=== PATIENT | female | born 1990 | race Caucasian/White ===

== ENCOUNTER → 2018-07-18 | Outpatient (CLI) | payer OTHER, MEDICAID ==
--- NOTE | 2018-07-18 12:26 | Diagnostic Imaging Report ---
INDICATION: survey. TECHNIQUE: Multiple real-time grayscale images were obtained over the gravid uterus. COMPARISON: None. FINDINGS: There is a single live fetus in a variable presentation. heart rate was recorded at 156 beats per minute. The placenta is posterior. The amniotic fluid volume appears normal. survey does show slight dilatation of the left renal pelvis. Kidneys are otherwise unremarkable. Bladder and stomach are unremarkable. The brain is unremarkable. There is a four-chamber heart. There is an echogenic focus noted in the heart. There is a three-vessel cord with normal insertion. The spine is unremarkable. Biometrical measurements are as follows: Biparietal 5.08 cm, age 21 weeks 3 days. Head circumference 18.56 cm, age 21 weeks 0 days. Abdominal circumference 17.58 cm, age 22 weeks 4 days. Femur length 3.38 cm, age 20 weeks 5 days. Sonographic estimate age: 21 weeks 3 days. Sonographic estimated date of delivery: 11/25/2018. Estimated Weight: 434 gm (+/- 63 gm). LMP percentile: 75%. heart rate: 156 beats per minute. number: 1 of 1. IMPRESSION: Single live IUP 21 weeks 3 days gestational age. Estimated date of confinement sonographically is 11/25/2018. survey is unremarkable apart from very slight dilatation of the left renal pelvis. There is an echogenic focus in the heart as well. Followup could be performed. Dictated by: Dictated on workstation # [id number]
== END ==
LOC: RAD 09:58
PROVIDERS: ATTEND Obstetrics & Gynecology
DX: Z36.89 Encounter for other specified antenatal screening (principal); Z3A.21 21 weeks gestation of pregnancy
CPT/HCPCS: 76805

== ENCOUNTER 2018-11-30 14:07 | Inpatient (IN) | payer BC, MEDICAID ==
[2018-11-30] VITALS (11 sets, daily range): BP systolic 115–131; BP diastolic 56–76
[~2018-11-30] VITALS: Ht 162.6 cm; Wt 117.0 kg
--- NOTE | 2018-11-30 14:11 | NUR ---
Arrived to unit from ED with c/o contractions. Wt obtained and ambulates to room 319. Pt is the induction of labor for tonight. plan of care reviewed with pt and family at bedside. per Ariella electrical & instrumentation supervisor
--- NOTE | 2018-11-30 15:15 | NUR ---
Dr Lucero called and notified of pt arrival, c/o, assessment, contractions, fhr pattern, sve. new orders for admission received.
[2018-11-30] MEDS ORDERED: D5 LR IV SOLUTION 1,000 ML IV SCH (15:36)
[2018-11-30 15:42] LABS: BASOPHILS % (AUTO) 0 % (0-10); EOSINOPHILS % (AUTO) 0 % (0-10); HEMATOCRIT 41 % (35-52); LYMPHOCYTES # (AUTO) 1.7 X 10^3 (1.0-4.0); LYMPHOCYTES % (AUTO) 16 % (12-44); MEAN CORPUSCULAR HEMOGLOBIN 29 PG (25-34); MEAN CORPUSCULAR HGB CONC 34 G/DL (32-36); MEAN CORPUSCULAR VOLUME 87 FL (80-99); MONOCYTES # (AUTO) 0.6 X 10^3 (0.0-1.0); MONOCYTES % (AUTO) 6 % (0-12); NEUTROPHILS # (AUTO) 8.1 X 10^3 (1.8-7.8); NEUTROPHILS % (AUTO) 78 % (42-75); PLATELET COUNT 167 10^3/uL (130-400); RED CELL DISTRIBUTION WIDTH 14.3 % (10.0-14.5); WHITE BLOOD COUNT 10.3 10^3/uL (4.3-11.0)
[2018-11-30] MEDS ORDERED: FLU QUADRIvalent (5+ YOA) 2018-2019 (AFLURIA) 0.5 ML IM ONE (16:15)
[2018-11-30] MEDS ORDERED: OXYTOCIN/NORMAL SALINE 500 ML IV ONE ×2 (17:40→18:39)
[2018-11-30] MEDS ORDERED: LIDOCAINE/EPI 2% 1:200,00 (XYLOCAINE) 10 ML VIAL ONE (17:41)
[2018-11-30] MEDS: OXYTOCIN/NORMAL SALINE 500 ML IV SCH ×2 (18:07→18:41)
--- NOTE | 2018-11-30 18:07 | NUR ---
Spontaneous vaginal delivery of placenta with cord. fundal massage by dr murphy. pitocin increased to 999ml/hr as ordered. 1814 pericare, pad under pt. pt assisted from foot rests to sf position. plan of care reviewed with pt and family. ffu/1 with lt rubra noted, no clots expressed 1830 ffu/1 with lt rubra noted, no clots expressed. 1845 ffu/1 with lt rubra noted, no clots expressed 1900 ffu/1 with lt-mod rubra noted, no clots expressed. pt sitting up eating dinner. denies needs.
--- NOTE | 2018-11-30 18:24 | History & Physical-OB ---
OB - Chief Complaint & HPI Date/Time Date of Admission: Date of Admission: Nov 30, 2018 at 15:34 Date seen by a Provider: Nov 30, 2018 Time Seen by a Provider: 15:00 Chief Complaint/History OB-Reason for Admission/Chief: Onset of Labor Hx : 2 Hx Para: 1 Expected Date of Delivery: Nov 28, 2018 Gestational Age in Weeks: 40 Gestational Age in Days: 2 Admission Nurse Assessment Rev: Yes History of Labs O pos Antibody neg RI RPR NR HBsAg NR HIV NR GC neg GBS neg Allergies and Home Medications Allergies Coded Allergies: Sulfa (Sulfonamide Antibiotics) (Verified Allergy, Unknown, RASH, 11/30/18) Patient Home Medication List Home Medication List Reviewed: Yes OB - History Hx of Present Care: Yes Ultrasounds: Normal mid trimester US Obstetrical Complications: None Medical Complications: None Patient Past Medical History n/a OB - Admission Exam Physical Exam HEENT: NCAT Heart: Rhythm Normal Lungs: Clear Abdomen: Gravid Extremities: Normal Reflexes: Normal Cervical Dilatation: 4cm Effacement: 100% Station: -1 Membranes: Intact Heart Rate: 130's Accelerations: Accelerations Present Decelerations: No Decelerations Short Term Variability: Present Web Search Evaluator Variability: Average (6-25) Contractions on Admission: < 5 Minutes Apart Labs Laboratory Tests Test 11/30/18 14:30 Range/Units White Blood Count 10.3 4.3-11.0 10^3/uL Red Blood Count 4.76 4.35-5.85 10^6/uL Hemoglobin 14.0 11.5-16.0 G/DL Hematocrit 41 35-52 % Mean Corpuscular Volume 87 80-99 FL Mean Corpuscular Hemoglobin 29 25-34 PG Mean Corpuscular Hemoglobin Concent 34 32-36 G/DL Red Cell Distribution Width 14.3 10.0-14.5 % Platelet Count 167 130-400 10^3/uL Mean Platelet Volume 11.0 H 7.4-10.4 FL Neutrophils (%) (Auto) 78 H 42-75 % Lymphocytes (%) (Auto) 16 12-44 % Monocytes (%) (Auto) 6 0-12 % Eosinophils (%) (Auto) 0 0-10 % Basophils (%) (Auto) 0 0-10 % Neutrophils # (Auto) 8.1 H 1.8-7.8 X 10^3 Lymphocytes # (Auto) 1.7 1.0-4.0 X 10^3 Monocytes # (Auto) 0.6 0.0-1.0 X 10^3 Eosinophils # (Auto) 0.0 0.0-0.3 10^3/uL Basophils # (Auto) 0.0 0.0-0.1 10^3/uL OB - Assessment/Plan/Diagnosis Assessment Assessment: active labor Admission Dx 28 yo @ 40 weeks gestation Spontaneous active labor GBS neg BMI 44 Admission Status: Inpatient Order (span 2 midnights) Reason for Inpatient Admission: Active labor term Plan Plan: Expectant Management DOMENIC SALAMANCA DO Nov 30, 2018 18:24
--- NOTE | 2018-11-30 18:29 | OB Labor & Delivery Record ---
L&D History Date of Service Date of Service: Nov 30, 2018 History Expected Date of Delivery: Nov 28, 2018 Gestational Age in Weeks: 40 Hx : 2 Hx Para: 1 Complications Events: Routine care Operative Indications (Cesarea: N/A-Vaginal Delivery Intrapartal Events: None L&D Stage1 Stage One Onset of Labor - Date: Nov 30, 2018 Monitors and Tracing Monitor Mode: Internal Monitor Accelerations: Uniform Monitor Decelerations: Variable Station: -1 Retail Banker Variability: Average (6-10) Short Term Variability: Present Presentation: Vertex Signs of Distress by FHT Signs of Distress repetitive HR variable decels with contractions Rupture of Membranes Spontaneous Ruture of Membrane: No Amniotic Membrane Rupture Time: 15:30 Amniotic Membrane Fluid Desc.: Meconium Stained Vaginal Bleeding Description: Normal Show Progress/Notes Patient progressed in spontaneous labor pattern with no augmentation, and no analgesia medication requested. L&D Stage2 Stage Two Stage II Date: Nov 30, 2018 Monitors and Tracing Monitor Mode: Internal Monitor Accelerations: None Monitor Decelerations: Variable Alf Variability: Minimal (3-5) Short Term Variability: Present Position: Right Occiput Anterior Presentation: Vertex Cord Descript/Complications Cord Vessel Description: 3 Vessels Complications nuchal cord reduced x 1 Delivery Type Infant Delivery Method: Spontaneous Vaginal Anterior Shoulder: Left Episiotomy/Perineal Laceration Laceraction(s)/Extensions: Yes Episiotomy Description: Right Mediolateral Degree (describe repair) RML repaired using 3-0 rapide and 2-0 vicryl suture in usual fashion Condition of Infant Delivery 1 minute Comment: 7 5 minute Comment: 9 Notes live female weight 8lbs Condition of Condition of : Living Exam: No Observed Abnormalities Resuscitation Resuscitation: N/A - Spontaneous Resp L&D Stage3 Stage Three Stage III Date: Nov 30, 2018 Pictocin Pitocin Administration Comment: 30 mu wide open at delivery of placenta Placenta Delivery Placenta Delivery: Spontaneous Delivery Summary Summary Estimated blood loss (mL): 400 Attending at delivery: Domenic Salamanca DO Condition of Delivery Examined: Cervix Examined, Uterus Explored Post Hemorrhage: No Condition of Mother Stable Condition of Infant (s) stable DOMENIC SALAMANCA DO Nov 30, 2018 18:29
[2018-11-30] MEDS ORDERED: TETANUS,DIPTH,PERTUSS P/F (BOOSTRIX) 0.5 ML VIAL IM ONE (18:30)
[2018-11-30] MEDS ORDERED: MEASLES,MUMPS,RUBELLA 1 EA INJ SQ ONE (18:30)
[2018-11-30] MEDS ORDERED: HYDROcodone/APAP 5 MG/325 MG (LORTAB) TAB PO PRN (18:30)
[2018-11-30] MEDS ORDERED: BENZOCAINE/MENTHOL (DERMOPLAST) 56 ML CAN TP PRN (18:30)
[2018-11-30] MEDS ORDERED: DIBUCAINE (NUPERCAINAL) 1% OINT 30 GM TOP PRN (18:30)
[2018-11-30] MEDS ORDERED: WITCH HAZEL(TUCKS) 40 EA JAR TOP PRN (18:30)
[2018-11-30] MEDS ORDERED: DOCU100C37 PO (18:33)
[2018-11-30] MEDS ORDERED: IBUP-844 PO (18:33)
[2018-11-30] MEDS ORDERED: ACHD5005 PO (18:33)
[2018-11-30] MEDS ORDERED: Benzocaine/Menthol TP (18:33)
[2018-11-30] MEDS ORDERED: DIBU30OI TOP (18:33)
--- NOTE | 2018-11-30 18:34 | Discharge Inst-Women's Service ---
Discharge Inst-Women's Serv Depart Medication/Instructions New, Converted or Re-Newed RX: RX on Chart Final Diagnosis PPD 2 NVD Consults/Follow Up Additional Follow Up: Yes Orders/Referrals Dr. Salamanca in 6 weeks Activity Activity: Activity as Tolerated Driving Instructions: No Driving for 1 Week NO SMOKING: NO SMOKING Nothing Inside Vagina: No Douching, No Mar-Mac, No Tampons Diet Discharge Diet: No Restrictions Symptoms to Report to : Bleeding Excessive, Pain Increased, Fever Over 101 Degrees F, Vaginal Bleeding Increase, Questions/Concerns For Any Problems or Questions: Contact Your Physician DOEMNIC SALAMANCA DO Nov 30, 2018 18:34
--- OUTSIDE RECORDS SUMMARY | 2018-11-30 18:36 | XMS REPORT ---
Author Author Zuleika White [facility] Address [address] [place], [place] [id number] Care Team Providers Care Swimming Professor Name Role Phone Zuleika White PCP Unavailable Allergies and Adverse Reactions Name Reaction Notes Rocephin rash Plan of Treatment Planned Activity Comments Planned Date Planned Time Plan/Goal Breast ultrasound 06/20/2016 12:00 AM Medications Not available. Problem List Not available. Vital Signs Date Time BP-Sys(mm[Hg] BP-Breanne(mm[Hg]) HR(bpm) RR(rpm) Temp WT HT HC BMI BSA BMI Percentile O2 Sat(%) 06/15/2016 10:34:00 AM 114 mmHg 73 mmHg 77 bpm 97.8 F 226 lbs 63 in 40.03 kg/m2 2.13 m2 Social History Name Description Comments Alcohol Never Tobacco Never smoker History of Procedures Not available. Results Summary Not available. History Of Immunizations Not available. 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 Zuleika White MD
--- OUTSIDE RECORDS SUMMARY | 2018-11-30 18:36 | XMS REPORT ---
Author Author Zuleika White [facility] Address [address] [place], [place] [id number] Care Team Providers Care Fiber Analyst Name Role Phone Zuleika White PCP Unavailable Allergies and Adverse Reactions Name Reaction Notes Rocephin rash Plan of Treatment Not available. Medications Not available. Problem List Not available. Vital Signs Date Time BP-Sys(mm[Hg] BP-Breanne(mm[Hg]) HR(bpm) RR(rpm) Temp WT HT HC BMI BSA BMI Percentile O2 Sat(%) 06/15/2016 10:34:00 AM 114 mmHg 73 mmHg 77 bpm 97.8 F 226 lbs 63 in 40.03 kg/m2 2.13 m2 Social History Name Description Comments Alcohol Never Tobacco Never smoker History of Procedures Date Ordered Description Order Status 06/20/2016 12:00 AM Breast ultrasound Returned Results Summary Not available. History Of Immunizations Not available. 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 Zuleika White MD
--- OUTSIDE RECORDS SUMMARY | 2018-11-30 18:37 | XMS REPORT | Continuity of Care Document ---
Author Author [facility] Organization [facility] Address Unknown Phone Unavailable Allergies Active Description Code Type Severity Reaction Onset Reported/Identified Relationship to Patient Clinical Status Yes SULFA UNKNOWN UNKNOWN Medications There is no data. Problems Date Dx Coded Attending Type Code Diagnosis Diagnosed By 07/22/2018 DOMENIC SALAMANCA DO Ot Z36.89 ENCOUNTER FOR OTHER SPECIFIED 07/22/2018 DOMENIC SALAMANCA DO Ot Z3A.21 21 WEEKS GESTATION OF Procedures There is no data. Results Test Result Range Payette Test - 10/21/17 15:02 Payette Test Negative Negative Encounters ACCT No. Visit Date/Time Discharge Status Pt. Type Provider Facility Loc./Unit Complaint [id number] 01/05/2016 16:14:01 ACT Unknown [id number] 07/18/2018 09:58:00 07/18/2018 23:59:59 CLS Outpatient DOMENIC SALAMANCA DO [facility] RAD Z33.1 [id number] 10/21/2017 14:59:00 10/21/2017 23:59:00 DIS Outpatient Ingrid Dunaway [id number] 06/15/2016 12:56:43 06/15/2016 23:59:59 CLS Outpatient Zuleika White
--- OUTSIDE RECORDS SUMMARY | 2018-11-30 18:37 | XMS REPORT ---
Author Author Zuleika White [facility] Address [address] [place], [place] [phone] Care Team Providers Care Cannon Fire Direction Specialist Name Role Phone Zuleika White PCP Unavailable [...] Breast Lump, left Jun 15 2016 10:54AM Payers Insurance Name Company Name Plan Name Plan Number Policy Number Policy Group Number [id number] History of Encounters Visit Date Visit Type Provider 06/15/[address] Zuleika White MD
[2018-11-30] MEDS ORDERED: IBUPROFEN 600 MG (MOTRIN) TAB PO ONE (19:50)
[2018-11-30] MEDS ORDERED: BENZOCAINE/MENTHOL (DERMOPLAST) 56 ML CAN TP ONE (19:51)
[2018-11-30] MEDS ORDERED: WITCH HAZEL(TUCKS) 40 EA JAR ONE (19:51)
[2018-11-30] MEDS: IBUPROFEN 600 MG (MOTRIN) TAB PO SCH (20:08)
[2018-11-30] MEDS: DOCUSATE SODIUM 100 MG (COLACE) CAP PO SCH (21:48)
[2018-11-30] MEDS ORDERED: CATHETER FLUSH 10 ML SYR IV SCH ×2 (22:00)
[2018-12-01 00:07] VITALS: BP 88/49
[2018-12-01] MEDS: IBUPROFEN 600 MG (MOTRIN) TAB PO SCH ×4 (02:02→20:05)
[2018-12-01 04:00] VITALS: BP 116/76
[2018-12-01 06:28] LABS: BASOPHILS % (AUTO) 0 % (0-10); EOSINOPHILS % (AUTO) 0 % (0-10); HEMATOCRIT 36 % (35-52); HEMOGLOBIN 11.8 G/DL (11.5-16.0); LYMPHOCYTES % (AUTO) 20 % (12-44); MEAN CORPUSCULAR HEMOGLOBIN 29 PG (25-34); MEAN CORPUSCULAR HGB CONC 33 G/DL (32-36); MEAN CORPUSCULAR VOLUME 88 FL (80-99); MEAN PLATELET VOLUME 10.6 FL (7.4-10.4); MONOCYTES # (AUTO) 0.6 X 10^3 (0.0-1.0); MONOCYTES % (AUTO) 6 % (0-12); NEUTROPHILS # (AUTO) 7.4 X 10^3 (1.8-7.8); NEUTROPHILS % (AUTO) 74 % (42-75); PLATELET COUNT 128 10^3/uL (130-400); RED CELL DISTRIBUTION WIDTH 13.8 % (10.0-14.5); WHITE BLOOD COUNT 10.1 10^3/uL (4.3-11.0)
[2018-12-01] MEDS ORDERED: PRENATAL VITAMIN 1 EA TAB PO SCH (07:00)
--- NOTE | 2018-12-01 08:18 | Postpartum Progress Note ---
Note Note Day # 1 Subjective: Patient is without complaints. Ambulating, voiding. Tolerating a regular diet without nausea or vomiting. Normal lochia. Pain is well controlled with oral pain medications. Objective: Physical Exam: General - Alert and oriented, no apparent distress Abdomen - Soft, appropriately tender to palpation, non-distended, fundus firm at umbilicus Extremities - no edema, negative Narayan's bilaterally Assessment: PPD 1 NVD Plan: Routine care. Encourage breast feeding. Encourage ambulation. Ferrous sulfate supplementation. Plan for discharge tomorrow Vitals - Labs Vital Signs - I&O Vital Signs Date Time Temp Pulse Resp B/P (MAP) Pulse Ox O2 Delivery O2 Flow Rate FiO2 12/01/18 04:00 98.3 73 18 116/76 (89) Room Air 12/01/18 00:07 97.8 72 18 88/49 (62) Room Air 11/30/18 20:00 107 18 122/66 (84) Room Air 11/30/18 19:45 99.1 88 18 120/76 (91) Room Air 11/30/18 19:15 104 18 120/76 (91) Room Air 11/30/18 19:00 18 120/66 (84) Room Air 11/30/18 18:45 95 18 120/58 (78) Room Air 11/30/18 18:30 99.7 98 18 119/56 (77) Room Air 11/30/18 18:15 98.8 97 18 115/58 (77) Room Air 11/30/18 17:57 Non Rebreather 10.00 11/30/18 17:50 Non Rebreather 10.00 11/30/18 17:45 Non Rebreather 10.00 11/30/18 17:30 Non Rebreather 10.00 11/30/18 17:20 74 18 125/59 (81) Non Rebreather 10.00 11/30/18 17:15 Non Rebreather 10.00 11/30/18 17:00 Non Rebreather 10.00 11/30/18 16:45 80 18 119/67 (84) Non Rebreather 10.00 11/30/18 16:15 99.0 100 18 131/65 (87) Room Air 11/30/18 14:45 99.3 79 18 126/65 (85) Room Air I & O 3/4/19 07:00 Intake Total 1500 ml Balance 1500 ml Labs Laboratory Tests 11/30/18 14:30: White Blood Count 10.3, Red Blood Count 4.76, Hemoglobin 14.0, Hematocrit 41, Mean Corpuscular Volume 87, Mean Corpuscular Hemoglobin 29, Mean Corpuscular Hemoglobin Concent 34, Red Cell Distribution Width 14.3, Platelet Count 167, Mean Platelet Volume 11.0H, Neutrophils (%) (Auto) 78H, Lymphocytes (%) (Auto) 16, Monocytes (%) (Auto) 6, Eosinophils (%) (Auto) 0, Basophils (%) (Auto) 0, Neutrophils # (Auto) 8.1H, Lymphocytes # (Auto) 1.7, Monocytes # (Auto) 0.6, Eosinophils # (Auto) 0.0, Basophils # (Auto) 0.0 12/01/18 06:04: White Blood Count 10.1, Red Blood Count 4.06L, Hemoglobin 11.8, Hematocrit 36, Mean Corpuscular Volume 88, Mean Corpuscular Hemoglobin 29, Mean Corpuscular Hemoglobin Concent 33, Red Cell Distribution Width 13.8, Platelet Count 128L, Mean Platelet Volume 10.6H, Neutrophils (%) (Auto) 74, Lymphocytes (%) (Auto) 20 , Monocytes (%) (Auto) 6, Eosinophils (%) (Auto) 0, Basophils (%) (Auto) 0, Neutrophils # (Auto) 7.4, Lymphocytes # (Auto) 2.0, Monocytes # (Auto) 0.6, Eosinophils # (Auto) 0.0, Basophils # (Auto) 0.0 DOMENIC SALAMANCA DO Dec 01, 2018 08:18
--- NOTE | 2018-12-01 08:40 | NUR ---
Patient in shower at this time. Instructed to call when finished so this RN could assess and take vital signs. Patient verbalizes understanding.
[2018-12-01 08:53] VITALS: BP 125/67
[2018-12-01] MEDS: DOCUSATE SODIUM 100 MG (COLACE) CAP PO SCH ×2 (08:53→20:05)
--- NOTE | 2018-12-01 08:53 | NUR ---
AM shift assessment completed and vital signs obtained, see interventions. Patient refusing FLU and TDAP vaccines. Scheduled Colace, PNV, Motrin, and Iron PO given. Patient has showered. Plan of care reviewed with patient. Patient verbalizes understanding and questions answered. Fresh water provided.
[2018-12-01] MEDS ORDERED: FERROUS SULF 325 MG (IRON) TAB PO SCH (09:00)
[2018-12-01 11:55] VITALS: BP 116/61
[2018-12-01 17:00] VITALS: BP 113/57
--- NOTE | 2018-12-01 19:20 | NUR ---
Report to Giovany Edge RN.
[2018-12-01 20:05] VITALS: BP 111/56
[2018-12-02] MEDS: IBUPROFEN 600 MG (MOTRIN) TAB PO SCH (02:13)
[2018-12-02 02:32] VITALS: BP 115/71
--- NOTE | 2018-12-02 08:17 | Postpartum Progress Note ---
Note Note Day # 2 Subjective: Patient is without complaints. Ambulating, voiding. Tolerating a regular diet without nausea or vomiting. Normal lochia. Pain is well controlled with oral pain medications. Breast feeding Objective: Physical Exam: General - Alert and oriented, no apparent distress Abdomen - Soft, appropriately tender to palpation, non-distended, fundus firm at umbilicus Extremities - no edema, negative Narayan's bilaterally Assessment: PPD 2 NVD Plan: Routine care. Encourage breast feeding. Encourage ambulation. Ferrous sulfate supplementation. Plan for discharge today Vitals - Labs Vital Signs - I&O Vital Signs Date Time Temp Pulse Resp B/P (MAP) Pulse Ox O2 Delivery O2 Flow Rate FiO2 12/02/18 02:32 98.1 70 20 115/71 (86) 98 12/01/18 20:05 97.9 82 20 111/56 (74) 98 12/01/18 17:00 97.8 78 20 113/57 (75) 97 12/01/18 11:55 98.8 85 16 116/61 (79) 97 Room Air 12/01/18 08:53 98.2 111 16 125/67 (86) 97 Room Air DOMENIC SALAMANCA DO Dec 02, 2018 08:17
[2018-12-02 08:22] VITALS: BP 115/67
--- NOTE | 2018-12-02 08:22 | NUR ---
AM shift assessment completed and vital signs obtained, see interventions. Plan of care reviewed with patient. Patient verbalizes understanding and denies any current questions or concerns at this time. Shower supplies provided. Scheduled Motrin, Iron, PNV, and Colace PO given at this time. Dermoplast and Tucks restocked.
--- NOTE | 2018-12-02 12:17 | NUR ---
Discharge instructions and medications reviewed with patient both written and verbally. Patient verbalizes understanding and denies any current questions or concerns at this time. Written prescriptions given to patient.
--- NOTE | 2018-12-02 12:35 | NUR ---
Patient discharged at this time and ambulated down to awaiting private vehicle accompanied by Dev Gtz RN. No signs or symptoms of distress noted.
== END 2018-12-02 12:35 | disposition home or self-care (01) | DRG 807 ==
LOC: WSo 14:07 → LDRP 14:07 → WSo 15:34 → LDRP 20:06
PROVIDERS: ADMIT Obstetrics & Gynecology; ATTEND Obstetrics & Gynecology
PROC: 10E0XZZ Delivery of Products of Conception, External Approach (ICD-10-PCS; principal; 2018-11-30)
PROC: 0W8NXZZ Division of Female Perineum, External Approach (ICD-10-PCS; 2018-11-30)
DX: O76 Abnormality in fetal heart rate and rhythm complicating labor and delivery (principal); O69.81X0 Labor and delivery complicated by cord around neck, without compression, not applicable or unspecified; O77.0 Labor and delivery complicated by meconium in amniotic fluid; Z3A.40 40 weeks gestation of pregnancy; Z37.0 Single live birth; Z88.2 Allergy status to sulfonamides; Z87.891 Personal history of nicotine dependence
CPT/HCPCS: 36415; 85025; 86850; 86900; 86901; 99212

== ENCOUNTER → 2021-09-01 | Outpatient (CLI) | payer BC, MEDICAID ==
[~2021-09-01] MED LIST: ACHD5005 PO; Benzocaine/Menthol TP; DIBU30OI TOP; DOCU100C37 PO; IBUP-844 PO
--- NOTE | 2021-09-01 13:41 | Diagnostic Imaging Report ---
INDICATION: Routine care. TECHNIQUE: Multiple real-time grayscale images were obtained over the gravid uterus. COMPARISON: None. FINDINGS: There is a single live fetus in a breech presentation. heart rate was recorded at 144 BPM. The placenta is anterior. Amniotic fluid volume is normal. Cervical length is 6.2 cm. survey shows kidneys, bladder, and stomach to be unremarkable. brain is unremarkable. There is a four-chamber heart. There is a three-vessel cord with normal insertion. The spine is unremarkable. Biometrical measurements are as follows: Biparietal 4.49 cm, age 19 weeks 5 days. Head circumference 16.86 cm, age 19 weeks 4 days. Abdominal circumference 14.61 cm, age 20 weeks 0 days. Femur length 3.07 cm, age 19 weeks 4 days. Sonographic estimate age: 19 weeks 5 days. Sonographic estimated date of delivery: 01/21/2022. Estimated Weight: 308 gm (+/- 45 gm). LMP percentile: 44%. heart rate: 144 beats per minute. number: 1 of 1. IMPRESSION: Single live IUP of 19 weeks 5 days gestational age. Estimated date of confinement sonographically is 01/21/2022. Dictated by: Dictated on workstation # [id number]
== END ==
LOC: RAD 09:45
PROVIDERS: ATTEND Nurse Practitioner Women's Health
DX: Z34.02 Encounter for supervision of normal first pregnancy, second trimester (principal); Z3A.19 19 weeks gestation of pregnancy
CPT/HCPCS: 76805

== ENCOUNTER 2022-01-23 18:36 | Inpatient (IN) | payer BC, MEDICAID ==
[~2022-01-23] VITALS: Ht 160 cm; Wt 118.0 kg
[2022-01-23 19:45] VITALS: BP 117/57
[2022-01-23 20:00] VITALS: BP 117/57
[2022-01-23] MEDS ORDERED: LIDOCAINE/EPI 2% 1:200,00 (XYLOCAINE) 20 ML VIAL INJ PRN (20:15)
[2022-01-23] MEDS ORDERED: LACTATED RINGERS 1,000 ML IV ONE (20:15)
[2022-01-23 20:18] LABS: BILIRUBIN,URINE NEGATIVE (NEGATIVE); CLARITY,URINE CLEAR; COLOR,URINE YELLOW; GLUCOSE, URINE (UA) NEGATIVE (NEGATIVE); KETONES,URINE TRACE (NEGATIVE); LEUKOCYTE ESTERASE ,URINE NEGATIVE (NEGATIVE); NITRITE,URINE NEGATIVE (NEGATIVE); PROTEIN,URINE NEGATIVE (NEGATIVE)
[2022-01-23 20:27] LABS: BACTERIA,URINE MODERATE /HPF
[2022-01-23 20:46] LABS: BASOPHILS % (AUTO) 0 % (0-10); EOSINOPHILS # (AUTO) 0.1 10^3/uL (0.0-0.3); EOSINOPHILS % (AUTO) 1 % (0-10); HEMATOCRIT 40 % (35-52); HEMOGLOBIN 13.4 g/dL (11.5-16.0); LYMPHOCYTES # (AUTO) 1.7 10^3/uL (1.0-4.0); LYMPHOCYTES % (AUTO) 18 % (12-44); MEAN CORPUSCULAR HEMOGLOBIN 30 pg (25-34); MEAN CORPUSCULAR HGB CONC 34 g/dL (32-36); MEAN CORPUSCULAR VOLUME 88 fL (80-99); MEAN PLATELET VOLUME 10.7 fL (9.0-12.2); MONOCYTES # (AUTO) 0.6 10^3/uL (0.0-1.0); MONOCYTES % (AUTO) 6 % (0-12); NEUTROPHILS % (AUTO) 75 % (42-75); PLATELET COUNT 161 10^3/uL (130-400); WHITE BLOOD COUNT 9.4 10^3/uL (4.3-11.0)
[2022-01-23] MEDS ORDERED: D5 LR IV SOLUTION 1,000 ML IV ONE (21:29)
[2022-01-23] MEDS: D5 LR IV SOLUTION 1,000 ML IV SCH (21:39)
[2022-01-23 22:00] VITALS: BP 107/57
[2022-01-23] MEDS ORDERED: FAMO-119 PO (22:06)
[2022-01-23] MEDS ORDERED: PNV11TAB5 PO (22:06)
[2022-01-23 23:00] VITALS: BP 102/61
[2022-01-24] VITALS (15 sets, daily range): BP systolic 104–124; BP diastolic 52–69
[2022-01-24] MEDS: CATHETER FLUSH 10 ML SYR IV SCH ×2 (01:32→06:00)
[2022-01-24] MEDS: D5 LR IV SOLUTION 1,000 ML IV SCH (05:36)
[2022-01-24] MEDS ORDERED: OXYTOCIN PRE-MIX DRIP 500 ML IV ONE ×2 (06:06→06:54)
[2022-01-24] MEDS: OXYTOCIN PRE-MIX DRIP 500 ML IV SCH ×2 (06:21→06:56)
[2022-01-24] MEDS ORDERED: LIDOCAINE/EPI 2% 1:200,00 (XYLOCAINE) 10 ML VIAL ONE (07:01)
--- NOTE | 2022-01-24 07:12 | History & Physical-OB ---
OB - Chief Complaint & HPI Date/Time Date of Admission: Date of Admission: Jan 23, 2022 at 18:36 Date seen by a Provider: Jan 24, 2022 Time Seen by a Provider: 06:00 Chief Complaint/History OB-Reason for Admission/Chief: Induction of Labor Hx : 3 Hx Para: 2 Expected Date of Delivery: Jan 21, 2022 Gestational Age in Weeks: 40 Gestational Age in Days: 2 Admission Nurse Assessment Rev: Yes Allergies and Home Medications Allergies Coded Allergies: Sulfa (Sulfonamide Antibiotics) (Verified Allergy, Unknown, RASH, 11/30/18) Patient Home Medication List Home Medication List Reviewed: Yes Famotidine (Pepcid) 20 Mg Tablet, 20 MG PO, (Reported) Entered as Reported by: STEFFANIE MUNIZ on 01/23/222205 Last Action: New Order [id number]/Omega3/Dha/Fish Oil ( Gummies) 400 Mcg-32.5 Mg (25 Mg-7.5 Mg) Tab.chew, 1 EACH PO, (Reported) Entered as Reported by: STEFFANIE MUNIZ on 01/23/222205 Last Action: New Order Discontinued Medications Dibucaine (Dibucaine) 30 Gm Oint, 0 GM TOP UD PRN for PAIN- SEE INSTRUCTIONS Discontinued Reason: No Longer Taking Prescribed by: DOMENIC SALAMANCA on 11/30/181832 Last Action: Discontinued Docusate Sodium (Docusate Sodium) 100 Mg Capsule, 100 MG PO BID PRN for CONSTIPATION-1ST LINE Discontinued Reason: No Longer Taking Prescribed by: DOMENIC SALAMANCA on 11/30/181832 Last Action: Discontinued Hydrocodone Bit/Acetaminophen (Lortab 5 Mg Tablet) 1 Tab Tab, 1 TAB PO Q4H PRN for PAIN-MODERATE Discontinued Reason: No Longer Taking Prescribed by: DOMENIC SALAMANCA on 11/30/181832 Last Action: Discontinued Ibuprofen (Ibu) 600 Mg Tablet, 600 MG PO Q6H Discontinued Reason: No Longer Taking Prescribed by: DOMENIC SALAMANCA on 11/30/181832 Last Action: Discontinued [Benzocaine/Menthol] 56 ML AEROSOL, 56 ML TP UD PRN for PAIN- SEE INSTRUCTIONS Discontinued Reason: No Longer Taking Prescribed by: DOMENIC SALAMANCA on 11/30/181832 Last Action: Discontinued OB - History Hx of Present Care: Yes Ultrasounds: Normal mid trimester US Obstetrical Complications: None Medical Complications: None Patient Past Medical History n/a Immunizations Influenza Vaccine Up-to-Date: No; Not Current OB - Admission Exam Physical Exam Vitals: Vital Signs 01/23/22 01/24/22 01/24/22 20:00 00:00 04:00 Temp 36.7 Pulse 69 Resp 18 B/P (MAP) 111/61 (78) Pulse Ox 97 O2 Delivery Room Air HEENT: NCAT Heart: Rhythm Normal Lungs: Clear Abdomen: Gravid Extremities: Normal Reflexes: Normal Cervical Dilatation: 3cm Effacement: 75% Station: -2 Membranes: Intact Heart Rate: 130's Accelerations: Accelerations Present Decelerations: No Decelerations Short Term Variability: Present Skilled Nursing Variability: Average (6-25) Contractions on Admission: 6-10 Minutes Apart Intensity: Mild Amor Scoring Tool (Modified) Dilation (cm): 1-2cm (1) Effacement (%): 51-79% (2) Descent/Station: -2 (1) Cervix Consistency: Soft (2) Cervix Position: Anterior (2) Add 1 point for: Each previous vaginal delivery (1) Amor Score: 10 Labs Laboratory Tests Test 01/23/22 18:45 01/23/22 20:25 Range/Units Urine Color YELLOW Urine Clarity CLEAR Urine pH 6.0 5-9 Urine Specific [place] 1.025 H 1.016-1.022 Urine Protein NEGATIVE NEGATIVE Urine Glucose (UA) NEGATIVE NEGATIVE Urine Ketones TRACE H NEGATIVE Urine Nitrite NEGATIVE NEGATIVE Urine Bilirubin NEGATIVE NEGATIVE Urine Urobilinogen 0.2 < = 1.0 MG/DL Urine Leukocyte Esterase NEGATIVE NEGATIVE Urine RBC (Auto) NEGATIVE NEGATIVE Urine RBC NONE /HPF Urine WBC 2-5 /HPF Urine Squamous Epithelial Cells 5-10 /HPF Urine Crystals NONE /LPF Urine Bacteria MODERATE H /HPF Urine Casts NONE /LPF Urine Mucus NEGATIVE /LPF Urine Culture Indicated YES White Blood Count 9.4 4.3-11.0 10^3/uL Red Blood Count 4.52 3.80-5.11 10^6/uL Hemoglobin 13.4 11.5-16.0 g/dL Hematocrit 40 35-52 % Mean Corpuscular Volume 88 80-99 fL Mean Corpuscular Hemoglobin 30 25-34 pg Mean Corpuscular Hemoglobin Concent 34 32-36 g/dL Red Cell Distribution Width 13.2 10.0-14.5 % Platelet Count 161 130-400 10^3/uL Mean Platelet Volume 10.7 9.0-12.2 fL Immature Granulocyte % (Auto) 0 % Neutrophils (%) (Auto) 75 42-75 % Lymphocytes (%) (Auto) 18 12-44 % Monocytes (%) (Auto) 6 0-12 % Eosinophils (%) (Auto) 1 0-10 % Basophils (%) (Auto) 0 0-10 % Neutrophils # (Auto) 7.0 1.8-7.8 10^3/uL Lymphocytes # (Auto) 1.7 1.0-4.0 10^3/uL Monocytes # (Auto) 0.6 0.0-1.0 10^3/uL Eosinophils # (Auto) 0.1 0.0-0.3 10^3/uL Basophils # (Auto) 0.0 0.0-0.1 10^3/uL Immature Granulocyte # (Auto) 0.0 0.0-0.1 10^3/uL OB - Assessment/Plan/Diagnosis Assessment Assessment: induction of labor Admission Dx 31 yo @ 40 weeks Post dates GBS neg Admission Status: Inpatient Order (span 2 midnights) Reason for Inpatient Admission: IOL at 40 weeks Plan Plan: Induction Induction Method: per Misoprostol Protocol DOMENIC SALAMANCA DO Jan 24, 2022 07:12
[2022-01-24] MEDS ORDERED: WITCH HAZEL(TUCKS) 40 EA JAR TOP PRN (07:15)
[2022-01-24] MEDS ORDERED: BENZOCAINE/MENTHOL (DERMOPLAST) 56 ML CAN TP PRN (07:15)
[2022-01-24] MEDS ORDERED: MEASLES,MUMPS,RUBELLA 1 EA INJ SQ ONE (07:15)
[2022-01-24] MEDS ORDERED: TETANUS,DIPTH,PERTUSS P/F (BOOSTRIX) 0.5 ML VIAL IM ONE (07:15)
[2022-01-24] MEDS ORDERED: NALOXONE 0.4 MG/ML 1 ML (NARCAN) VIAL IV PRN (07:15)
--- NOTE | 2022-01-24 07:17 | OB Labor & Delivery Record ---
L&D History Date of Service Date of Service: Jan 24, 2022 History Expected Date of Delivery: Jan 21, 2022 Gestational Age in Weeks: 40 Hx : 3 Hx Para: 2 Complications Events: Routine care Operative Indications (Cesarea: N/A-Vaginal Delivery Intrapartal Events: None L&D Stage1 Stage One Onset of Labor - Date: Jan 24, 2022 Monitors and Tracing Monitor Mode: External Heart Rate: 120 Monitor Accelerations: Uniform Monitor Decelerations: Variable Station: -3 Senior Care Variability: Average (6-10) Short Term Variability: Present Presentation: Vertex Vital Signs VS - Last 72 Hours, by Label 01/23/22 01/23/22 01/23/22 01/23/22 19:45 20:00 22:00 23:00 Temp 37.0 37.0 Pulse 92 92 89 73 Resp 18 18 18 18 B/P (MAP) 117/57 (77) 107/57 (74) 102/61 (75) Pulse Ox 97 97 O2 Delivery Room Air Room Air 01/24/22 01/24/22 01/24/22 01/24/22 00:00 01:00 02:00 03:00 Temp 36.7 Pulse 67 72 73 66 Resp 18 18 18 18 B/P (MAP) 121/57 (78) 110/59 (76) 108/57 (74) 111/60 (77) 01/24/22 04:00 Pulse 69 Resp 18 B/P (MAP) 111/61 (78) Rupture of Membranes Spontaneous Ruture of Membrane: Yes Amniotic Membrane Rupture Time: 05:20 Amniotic Membrane Fluid Desc.: Clear Vaginal Bleeding Description: Normal Show Progress/Notes Patient admitted for postdates IOL, started on PO misoprostol overnight and received two doses. She progressed with no other augmentation and SROM to complete and +1 station when I was notified to present for delivery L&D Stage2 Stage Two Stage II Date: Jan 24, 2022 Monitors and Tracing Monitor Mode: External Heart Rate: 120 Monitor Decelerations: Variable Position: Right Occiput Anterior Presentation: Vertex Signs of Distress by FHT Signs of Distress Broken heart tracing, intermittant monitoring done as best as able Cord Descript/Complications Cord Vessel Description: 3 Vessels Complications nuchal cord reduced x 1 Delivery Type Infant Delivery Method: Spontaneous Vaginal Anterior Shoulder: Right Episiotomy/Perineal Laceration Laceraction(s)/Extensions: Yes Episiotomy Description: Periurethral Extnsion/lac, Vaginal Extension/lac, 1st degree Location Modifier: Medial Degree (describe repair) both lacerations repaired using 3-0 rapide in usual fashion. Condition of Infant Delivery 1 minute Comment: 9 5 minute Comment: 9 Notes Live male infant weight 7lbs 7oz Condition of Infant Condition of : Living Exam: No Observed Abnormalities Resuscitation Resuscitation: N/A - Spontaneous Resp L&D Stage3 Stage Three Stage III Date: Jan 24, 2022 Pictocin Pitocin Administration Comment: 30 mu wide open after delivery of placenta Placenta Delivery Placenta Delivery: Spontaneous Delivery Summary Summary Estimated blood loss (mL): 350 Attending at delivery: Domenic Salamanca DO Condition of Delivery Examined: Cervix Examined, Uterus Explored Post Hemorrhage: No Condition of Mother stable Condition of Infant (s) stable DOMENIC SALAMANCA DO Jan 24, 2022 07:16
[2022-01-24] MEDS: ACETAMINOPHEN 500 MG TAB (TYLENOL) PO SCH ×2 (09:00→21:00)
[2022-01-24] MEDS ORDERED: ACETAMINOPHEN 500 MG TAB (TYLENOL) ONE (09:24)
[2022-01-24] MEDS ORDERED: IBUPROFEN 600 MG (MOTRIN) TAB PO ONE (09:24)
[2022-01-24] MEDS: DOCUSATE SODIUM 100 MG (COLACE) CAP PO SCH ×2 (09:25→21:00)
[2022-01-24] MEDS ORDERED: IBUPROFEN 600 MG (MOTRIN) TAB PO SCH ×2 (12:00)
[2022-01-24] MEDS ORDERED: ACETAMINOPHEN 500 MG TAB (TYLENOL) PO SCH ×2 (14:00)
[2022-01-24] MEDS ORDERED: CATHETER FLUSH 10 ML SYR IV SCH (14:00)
[2022-01-24] MEDS: IBUPROFEN 600 MG (MOTRIN) TAB PO SCH ×2 (15:43→21:00)
[2022-01-25] MEDS: IBUPROFEN 600 MG (MOTRIN) TAB PO SCH ×3 (03:00→08:54)
[2022-01-25 03:20] VITALS: BP 119/55
[2022-01-25 05:58] LABS: BASOPHILS % (AUTO) 0 % (0-10); EOSINOPHILS # (AUTO) 0.1 10^3/uL (0.0-0.3); EOSINOPHILS % (AUTO) 2 % (0-10); HEMATOCRIT 40 % (35-52); HEMOGLOBIN 13.1 g/dL (11.5-16.0); LYMPHOCYTES # (AUTO) 2.4 10^3/uL (1.0-4.0); LYMPHOCYTES % (AUTO) 30 % (12-44); MEAN CORPUSCULAR HEMOGLOBIN 30 pg (25-34); MEAN CORPUSCULAR HGB CONC 33 g/dL (32-36); MEAN CORPUSCULAR VOLUME 91 fL (80-99); MEAN PLATELET VOLUME 10.8 fL (9.0-12.2); MONOCYTES # (AUTO) 0.5 10^3/uL (0.0-1.0); MONOCYTES % (AUTO) 6 % (0-12); NEUTROPHILS # (AUTO) 4.8 10^3/uL (1.8-7.8); NEUTROPHILS % (AUTO) 61 % (42-75); PLATELET COUNT 141 10^3/uL (130-400); WHITE BLOOD COUNT 7.8 10^3/uL (4.3-11.0)
[2022-01-25] MEDS: ACETAMINOPHEN 500 MG TAB (TYLENOL) PO SCH (06:15)
[2022-01-25 07:39] VITALS: BP 108/58
--- NOTE | 2022-01-25 07:55 | Postpartum Progress Note ---
Note Note Day # 1 Subjective: Patient is without complaints. Ambulating, voiding. Tolerating a regular diet without nausea or vomiting. Normal lochia. Pain is well controlled with oral pain medications. Objective: Physical Exam: General - Alert and oriented, no apparent distress Abdomen - Soft, appropriately tender to palpation, non-distended, fundus firm at umbilicus Extremities - no edema, negative Narayan's bilaterally Assessment: PPD 1 NVD Plan: Routine care. Encourage breast feeding. Encourage ambulation. Ferrous sulfate supplementation. Plan for discharge today Vitals - Labs Vital Signs - I&O Vital Signs Date Time Temp Pulse Resp B/P (MAP) Pulse Ox O2 Delivery O2 Flow Rate FiO2 01/25/22 07:39 36.2 70 16 108/58 (75) 98 Room Air 01/25/22 03:20 36.5 80 18 119/55 (76) 98 Room Air 01/24/22 21:00 36.3 94 18 110/69 (83) 98 Room Air 01/24/22 15:41 36.5 77 18 114/58 (76) 98 Room Air 01/24/22 14:52 124/59 (80) 01/24/22 13:17 36.4 78 18 122/63 (82) 96 Room Air 01/24/22 08:59 36.9 79 16 111/52 (71) 95 Room Air I & O 01/25/22 07:00 Intake Total 500 ml Balance 500 ml Labs Laboratory Tests 01/25/22 05:25: White Blood Count 7.8, Red Blood Count 4.41, Hemoglobin 13.1, Hematocrit 40, Mean Corpuscular Volume 91, Mean Corpuscular Hemoglobin 30, Mean Corpuscular Hemoglobin Concent 33, Red Cell Distribution Width 13.5, Platelet Count 141, Mean Platelet Volume 10.8, Immature Granulocyte % (Auto) 0, Neutrophils (%) (Auto) 61, Lymphocytes (%) (Auto) 30, Monocytes (%) (Auto) 6, Eosinophils (%) (Auto) 2, Basophils (%) (Auto) 0, Neutrophils # (Auto) 4.8, Lymphocytes # (Auto) 2.4, Monocytes # (Auto) 0.5, Eosinophils # (Auto) 0.1, Basophils # (Auto) 0.0, Immature Granulocyte # (Auto) 0.0 Microbiology 01/23/22 Urine Culture - Final, Complete >=3 Gram Positive Isolates DOMENIC SALAMANCA DO Jan 25, 2022 07:55
--- NOTE | 2022-01-25 07:57 | Discharge Inst-Women's Service ---
Discharge Inst-Women's Serv Depart Medication/Instructions New, Converted or Re-Newed RX: Transmitted to Pharmacy Final Diagnosis PPD 1 NVD Problems Reviewed?: Yes Consults/Follow Up Additional Follow Up: Yes Orders/Referrals Dr. Salamanca in 6 weeks Activity Activity: Activity as Tolerated Driving Instructions: No Driving for 1 Week NO SMOKING: NO SMOKING Nothing Inside Vagina: No Douching, No [place], No Tampons Diet Discharge Diet: No Restrictions Symptoms to Report to : Bleeding Excessive, Pain Increased, Fever Over 101 Degrees F, Vaginal Bleeding Increase, Questions/Concerns For Any Problems or Questions: Contact Your Physician DOMENIC SALAMANCA DO Jan 25, 2022 07:57
[2022-01-25] MEDS ORDERED: BENZ78AE5 TP (07:59)
[2022-01-25] MEDS ORDERED: IBUP-844 PO (07:59)
[2022-01-25] MEDS ORDERED: DOCU100C37 PO (07:59)
[2022-01-25] MEDS ORDERED: ACET-93 PO (07:59)
[2022-01-25 08:45] VITALS: BP 108/58
[2022-01-25] MEDS ORDERED: DOCUSATE SODIUM 100 MG (COLACE) CAP PO SCH (09:00)
== END 2022-01-25 12:15 | disposition home or self-care (01) | DRG 807 ==
LOC: LDRP 18:36
PROVIDERS: ADMIT Obstetrics & Gynecology; ATTEND Obstetrics & Gynecology
PROC: 3E0DXGC Introduction of Other Therapeutic Substance into Mouth and Pharynx, External Approach (ICD-10-PCS; 2022-01-23)
PROC: 10E0XZZ Delivery of Products of Conception, External Approach (ICD-10-PCS; principal; 2022-01-24)
PROC: 0W8NXZZ Division of Female Perineum, External Approach (ICD-10-PCS; 2022-01-24)
PROC: 0HQ9XZZ Repair Perineum Skin, External Approach (ICD-10-PCS; 2022-01-24)
PROC: 0UQMXZZ Repair Vulva, External Approach (ICD-10-PCS; 2022-01-24)
PROC: 0UQG7ZZ Repair Vagina, Via Natural or Artificial Opening (ICD-10-PCS; 2022-01-24)
DX: O48.0 Post-term pregnancy (principal); Z37.0 Single live birth; Z3A.40 40 weeks gestation of pregnancy; O69.81X0 Labor and delivery complicated by cord around neck, without compression, not applicable or unspecified; O70.0 First degree perineal laceration during delivery
CPT/HCPCS: 36415; 81000; 85025; 86850; 86900; 86901; 87088